=== PATIENT | male | born 1970 | race Caucasian/White ===

== ENCOUNTER 2019-08-11 20:31 | Inpatient (IN) | payer OTHER ==
[~2019-08-11] VITALS: Ht 185.4 cm; Wt 64.9 kg
[2019-08-11 23:05] VITALS: BP 119/94
[2019-08-11] MEDS ORDERED: TEMAZEPAM 7.5 MG CAPSULE PO PRN (23:30)
[2019-08-11] MEDS ORDERED: MAG HYDROX/AL HYDROX/SIMETH 30 ML UDC PO PRN (23:30)
[2019-08-11] MEDS ORDERED: MAGNESIUM HYDROXIDE 30 ML UDC PO PRN (23:30)
[2019-08-11] MEDS ORDERED: ACETAMINOPHEN 325 MG TABLET PO PRN (23:30)
[2019-08-11] MEDS ORDERED: BLOOD SUGAR DIAGNOSTIC 1 EACH STRIP IN ONE (23:30)
[2019-08-12] MEDS ORDERED: OLAN10TA3 PO (00:02)
[2019-08-12] MEDS ORDERED: OLAN5TAB3 PO (00:02)
[2019-08-12] MEDS ORDERED: LORA-259 PO (00:02)
--- NOTE | 2019-08-12 01:13 | NUR ---
GPS CIGAR HEAD PUNCHER NOTES: ADMITTED A 49 Y/O MALE FROM [facility] ON [address] 08/11/2019 AT 0941 FOR GRAVELY DISABLED. PER HOLD PT HAS NOT EATEN IN 2 DAYS, FEARFUL ABOUT [facility], FEARFUL OF POLICE AND ASKING MOM IF THEY ARE GOING TO ARREST HIM. PT ALSO ASKED MOM "AM I ALIVE". THREW ALL OF HIS BEDDINGS OUTSIDE OF HIS ROOM. UNABLE TO STATE WHEN HE LAST TOOK HIS MEDICATION. UNABLE TO MAKE DECISIONS ON HIS SAFETY, UNABLE TO STAY FOCUSED, PACING BACK AND FORTH, AND STATING HE HEARS VOICES IN HIS HEAD. UPON FACE TO FACE EVALUATION, PT PRESENTS ALERT AND ORIENTED X3, DISHEVELED, UNSTEADY GAIT, ANXIOUS, CALM AND COOPERATIVE, ABLE TO FOLLOW COMMAND, BUT TOO TIRED TO SIGN ADMISSION PAPERS. FEELING SLEEPY. BLOOD SUGAR 98, MRSA DONE, SKIN ASSESSMENT DONE, SKIN MOSTLY CLEAR EXCEPT FOR OLD SCRATCHES ON PT CHEST/ABDOMEN. PT BELONGINGS AND CONTRABAND WERE CHECKED AND PLACED IN SAFE. PT RIGHTS DISCUSSED AND PT HANDBOOK PROVIDED. GUIDE TO PRESCRIPTION MEDICATION GIVEN. PT WILL BE UNDER THE CARE OF DR ARMENDARIZ PSYCHIATRIST AND DR DEE INTERNAL MEDICAINE. ORIENTED TO UNIT, STAFF, DOCTORS, CARE PLAN AND UNIT POLICIES. BOTH DOCTORS NOTIFIED OF PT ADMISSION. MEDICATION RECONCILIATION DONE. PT AND DIETARY CONSULT DONE. Q15 MINUTES CHECKS INITIATED, FALL AND SAFETY PRECAUTION INITIATED, CARE PLAN STARTED. CALL LIGHT WITHIN REACH, BED IN LOW LOCKED POSITION. FLUID AND SNACKS GIVEN TOLERATED. WILL MONITOR PT FOR MOOD, SAFETY AND BEHAVIOR. WILL ENDORSE TO ONCOMING DAY SHIFT NURSE.
[2019-08-12 07:49] LABS: BASOPHILS % (AUTO) 0.3 % (0.0-2.0); HEMATOCRIT 51 % (39-51); HEMOGLOBIN 17.2 g/dL (13.5-17.5); LYMPHOCYTES # (AUTO) 1.3 /CMM (0.8-4.8); MEAN CORPUSCULAR HGB CONC 34 g/dl (31.0-36.0); MEAN CORPUSCULAR VOLUME 90 fL (80-96); MONOCYTES # (AUTO) 1.1 /CMM (0.1-1.30); MONOCYTES % (AUTO) 13.2 % (2.0-12.0); NEUTROPHILS # (AUTO) 5.7 /CMM (1.8-8.9); NEUTROPHILS % (AUTO) 69.5 % (43.0-81.0); PLATELET COUNT (AUTO) 314 /CMM (150-450); RED BLOOD CELL COUNT(AUTO) 5.66 MIL/uL (4.5-6.0); WHITE BLOOD COUNT (AUTO) 8.2 K/uL (4.3-11.0)
[2019-08-12 08:00] VITALS: BP 117/75
[2019-08-12 08:13] LABS: CALCIUM, SERUM 10.4 mg/dL (8.5-10.1); CREATININE 1.1 mg/dL (0.6-1.3); POTASSIUM 3.4 mmol/L (3.5-5.1)
[2019-08-12] MEDS: NICOTINE PATCH (21MG) 21 MG PATCH.TD24 TD SCH (08:44)
[2019-08-12] MEDS ORDERED: LORAZEPAM 1 MG TABLET PO PRN (09:00)
[2019-08-12] MEDS ORDERED: POTASSIUM CHLORIDE 20 MEQ TAB.PRT.SR PO SCH ×2 (11:00→13:00)
[2019-08-12 16:00] VITALS: BP 115/83
--- NOTE | 2019-08-12 19:55 | NUR ---
GPS RN NOTES PT POTASSIUM LAB VALUE WAS 3.4 ORDERED TO GIVE K DUR 20 MEQ AT 1100 BUT WAS GIVEN AT 1300 BY AM NURSE.
[2019-08-12] MEDS: LORAZEPAM 0.5 MG TABLET PO PRN (20:03)
--- NOTE | 2019-08-12 20:47 | NUR ---
GPS RN NOTES: RECEIVED PT IN BED AWAKE, ALERT AND ORIENTED X2-3. BLUNT AFFECT, ANXIOUS, SUSPICIOUS, PARANOID, ASKING THIS NURSE "AM I SAFE". PT REASSURED OF HIS SAFETY. REALITY ORIENTATION DONE. DISORGANIZED THOUGHTS, POOR JUDGEMENT, POOR INSIGHT, FORGETFUL, COOPERATIVE. REPORTS BEING ANXIOUS, ATIVAN 0.5MG 1 TAB GIVEN PO FOR ANXIETY ORDERED. DENIES ANY PAIN AT THIS TIME. NO S/S OF ANY DISTRESS. RESPIRATION EVEN AND UNLABORED WITH EQUAL RISE AND FALL OF THE CHEST, ON ROOM AIR WITH SPO2 OF 99%. PT DENIES SI, HI AT THIS TIME. OFFERED FLUID AND SNACK TOLERATED. SAFETY AND FALL PRECAUTION OBSERVED, BED IN LOW LOCKED POSITION, CALL ARCE WITHIN REACH. Q15 MINUTES OBSERVATION CONTINUED. WILL CONTINUE TO MONITOR PT FOR MOOD, SAFETY AND BEHAVIOR.
[2019-08-12] MEDS ORDERED: OLANZAPINE 10 MG TABLET PO SCH (22:00)
[2019-08-13 07:23] LABS: CALCIUM, SERUM 9.2 mg/dL (8.5-10.1); POTASSIUM 3.3 mmol/L (3.5-5.1)
[2019-08-13 08:00] VITALS: BP 129/89
[2019-08-13] MEDS: NICOTINE PATCH (21MG) 21 MG PATCH.TD24 TD SCH (08:07)
--- NOTE | 2019-08-13 08:38 | NUR ---
RN-CO: Paged Dr Martell to made him aware of K 3.3.
--- NOTE | 2019-08-13 08:39 | NUR ---
RN-CO: DR. Martell called back with no new order.
--- NOTE | 2019-08-13 10:25 | NUR ---
RN-CO: DR Martell ordered KCL 40meq noted and carried out.
[2019-08-13] MEDS ORDERED: POTASSIUM CHLORIDE 20 MEQ TAB.PRT.SR PO ONE (10:30)
[2019-08-13 16:17] VITALS: BP 136/64
[2019-08-13 20:08] VITALS: BP 129/89
[2019-08-13] MEDS: OLANZAPINE 5 MG TABLET PO SCH (21:36)
[2019-08-13] MEDS: LORAZEPAM 0.5 MG TABLET PO PRN (22:46)
--- NOTE | 2019-08-13 22:47 | NUR ---
GPS RN NOTES: ANXIOUS PT C/O OF FEELING ANXIOUS. PT STATED, " I FEEL ANXIOUS. CAN I HAVE ATIVAN PLEASE?" CHECKED VITALS WNL. OFFERED ATIVAN 0.5 MG PO PRN ORDERED. PT AGREED AND TOLERATED MEDICATION WELL. CONTINUE TO MONITOR.
[2019-08-14 08:00] VITALS: BP 140/83
[2019-08-14] MEDS: NICOTINE PATCH (21MG) 21 MG PATCH.TD24 TD SCH (09:03)
--- NOTE | 2019-08-14 11:29 | NUR ---
UR Note: ALDEN faxed a clinical to [facility] with attn to Eliezer to the fax number: [phone].
--- NOTE | 2019-08-14 12:21 | NUR ---
Family Contact: SW called the pts mother, Vera ([phone]), and left a voicemail stating that the pt is in the hospital and that the SW would like to discuss the pts discharge plan.
--- NOTE | 2019-08-14 14:00 | NUR ---
Initial Discharge Plan: Pt currently resides with his parents in their home located at [address] [place] [address]; ([phone]). Per pt, he would like to return to his home. SW will work with the pt and the MD regarding appropriate discharge planning. SW will form a safe and proper discharge.
[2019-08-14 16:00] VITALS: BP 123/88
--- NOTE | 2019-08-14 16:29 | NUR ---
Individual Therapy: SW met with the pt at bedside and discussed his discharge plan with him. Pt stated that he would like to return to his home with his parents. 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 SW assured him that if his parents are comfortable he will be returning home.
[2019-08-14 20:09] VITALS: BP 128/82
--- NOTE | 2019-08-14 21:04 | NUR ---
patient c/o generalized body pain ,requested and given Tylenol 650 mg.Medication given is effective.
[2019-08-14] MEDS: LORAZEPAM 0.5 MG TABLET PO PRN (21:57)
[2019-08-14] MEDS: OLANZAPINE 5 MG TABLET PO SCH (21:57)
[2019-08-15 08:00] VITALS: BP 124/86
--- NOTE | 2019-08-15 08:29 | NUR ---
UR Note: ALDEN faxed a clinical to [facility] with attn to Eliezer to the fax number: [phone].
--- NOTE | 2019-08-15 08:36 | NUR ---
FAMILY CONTACT: SW contacted pts mother Vera ([phone]) to confirm pt is able to return back home located at [address] [place], [place] [id number]. Mother stated that pt lives with her and is able to return once stable.
[2019-08-15] MEDS: NICOTINE PATCH (21MG) 21 MG PATCH.TD24 TD SCH (08:38)
--- NOTE | 2019-08-15 09:00 | NUR ---
RN NOTE- PT IN BED, ALERT ORIENTED TO PERSON PLACE, CALM DIRECTABLE ENCOURAGED ADLS GROOMING. PT READING MOSTLY, ANSWERS QUERY DIRECTLY [facility] CONTACT. PARANOID DELUSIONS DENIES SI HI AH VH.
[2019-08-15 16:00] VITALS: BP 136/88
[2019-08-15 20:21] VITALS: BP 138/93
[2019-08-15] MEDS ORDERED: OLANZAPINE 5 MG TABLET PO SCH (22:00)
[2019-08-16 08:00] VITALS: BP 117/79
[2019-08-16] MEDS: NICOTINE PATCH (21MG) 21 MG PATCH.TD24 TD SCH (09:05)
--- NOTE | 2019-08-16 11:46 | NUR ---
Family Contact: Pts mother, Vera ([phone]), called the SW and stated that she needs a psychiatrist referral for the pt once he is discharged from the hospital. SW stated that she will reach out to the insurance company before the pt is discharged and see if they can assist with finding an aftercare provider. Pts mother stated that she wants a provider that can come to the house to meet with the pt and the SW expressed that may not be possible at this moment with JOSE but she will do her best to assist.
--- NOTE | 2019-08-16 15:30 | NUR ---
UR Note: ALDEN faxed a clinical to [facility] with attn to Eliezer to the fax number: [phone].
[2019-08-16] MEDS: LORAZEPAM 0.5 MG TABLET PO PRN (15:47)
[2019-08-16 16:00] VITALS: BP 125/91
--- NOTE | 2019-08-16 16:24 | NUR ---
Individual Therapy: SW met with the pt at bedside and discussed his discharge plan with him. SW stated that he will be going home by next week and that the SW is working on receiving after care appointments with the pts insurance company.
--- NOTE | 2019-08-16 19:30 | NUR ---
GPS RN NOTE, RECEIVED PATIENT AWAKE AND IN BED, PATIENT HAS NO COMPLAINTS OF PAIN. PATIENT IS DISPLAYING NO S/S OF APPARENT DISTRESS AT THIS TIME. PATIENT BREATHING IS UNLABORED WITH EQUAL RISE AND FALL OF THE CHEST. PATIENT IS ALERT AND ORIENTED X 3 ON ROOM AIR WITH A SPO2 98%. PATIENT IS COMPLIANT WITH MEDICATION, CALM, ANXIOUS AT TIMES, PARANOID, ISOLATIVE, AND COOPERATIVE. PATIENT DENIES SUICIDE IDEATIONS AND HOMICIDAL IDEATIONS AT THIS TIME. PATIENT ASSISTED WITH TURNING AND REPOSITIONING Q2HR AND PRN FOR COMFORT AND CIRCULATION. PATIENT HAS NO NEEDS AT THIS TIME. PATIENT EDUCATED ON THE USE OF THE CALL ARCE. PATIENT BED SIDE RAILS UP X 2 FOR SAFETY, BED IS LOCKED, AND LOW. WILL CONTINUE TO MONITOR Q15MIN WITH THE HELP OF STAFF TO MAINTAIN SAFETY.
[2019-08-16 20:03] VITALS: BP 98/60
[2019-08-16] MEDS: OLANZAPINE 10 MG TABLET PO SCH (20:12)
[2019-08-17 08:00] VITALS: BP 133/95
[2019-08-17] MEDS: NICOTINE PATCH (21MG) 21 MG PATCH.TD24 TD SCH (08:10)
--- NOTE | 2019-08-17 09:57 | NUR ---
UR Note: ALDEN faxed a clinical to [facility] with attn to Eliezer to the fax number: [phone].
--- NOTE | 2019-08-17 10:02 | NUR ---
UR NOTE: ALDEN contacted Eliezer, continuous pillowcase cutter at [facility] [phone] ex:[phone] and left a voicemail requesting referrals for partial programs in [facility].
--- NOTE | 2019-08-17 10:08 | NUR ---
FAMILY CONTACT: SW contacted pts mother Vera ([phone]) to inform her pt will be discharged on Wednesday08/21/19. Mother states that pt is able to come home whenever he wants. SW stated that she contacted pts insurance to request a referral for a partial program. Mother also expressed that she needs a psychiatrist and has called all the MD's on the insurance list and no one is able to see pt at this time. Mother states pt will need transportation arranged at she is unable to leave the house and is bedbound. SW stated that she will attempt to coordinate transportation for pt.
[2019-08-17] MEDS: LORAZEPAM 0.5 MG TABLET PO PRN ×2 (11:35→18:18)
--- NOTE | 2019-08-17 11:35 | NUR ---
Pt. is anxious and asking for Ativan po and given. Will continue to monitor.
--- NOTE | 2019-08-17 11:54 | NUR ---
INDIVIDUAL MEETING: SW met with pt at bedside and discussed pts discharge plan. Pt was concerned due to MD stating that he will be discharged to a SNF. SW assured pt that he will be discharged back home on Wednesday08/21/19. SW stated that transportation needed to be arranged and that it may be an issue since pt lives in [facility] and hospital is unable to arrange transportation for him. Pt stated that he would pay for a taxi and stated he has money to do so.
[2019-08-17 16:00] VITALS: BP 128/88
--- NOTE | 2019-08-17 18:19 | NUR ---
Pt. is anxious and asking for ativan prn and given.
--- NOTE | 2019-08-17 19:30 | NUR ---
GPS RN NOTE, RECEIVED PATIENT AWAKE AND IN BED, PATIENT HAS NO COMPLAINTS OF PAIN. PATIENT IS DISPLAYING NO S/S OF APPARENT DISTRESS AT THIS TIME. PATIENT BREATHING IS UNLABORED WITH EQUAL RISE AND FALL OF THE CHEST. PATIENT IS ALERT AND ORIENTED X 3 ON ROOM AIR WITH A SPO2 97%. PATIENT IS COMPLIANT WITH MEDICATION, CALM, ANXIOUS AT TIMES, PARANOID, ISOLATIVE, AND COOPERATIVE. PATIENT DENIES SUICIDE IDEATIONS AND HOMICIDAL IDEATIONS AT THIS TIME. PATIENT ASSISTED WITH TURNING AND REPOSITIONING Q2HR AND PRN FOR COMFORT AND CIRCULATION. PATIENT HAS NO NEEDS AT THIS TIME. PATIENT EDUCATED ON THE USE OF THE CALL ARCE. PATIENT BED SIDE RAILS UP X 2 FOR SAFETY, BED IS LOCKED, AND LOW. WILL CONTINUE TO MONITOR Q15MIN WITH THE HELP OF STAFF TO MAINTAIN SAFETY.
[2019-08-17 20:00] VITALS: BP 131/96
[2019-08-17] MEDS: OLANZAPINE 10 MG TABLET PO SCH (20:15)
[2019-08-18 08:00] VITALS: BP 120/79
[2019-08-18] MEDS: NICOTINE PATCH (21MG) 21 MG PATCH.TD24 TD SCH (09:09)
[2019-08-18] MEDS: LORAZEPAM 0.5 MG TABLET PO PRN ×2 (09:10→17:48)
--- NOTE | 2019-08-18 09:10 | NUR ---
rn notes ADMINISTERED ATIVAN 0.5 MG PO PRN FOR ANXIETY PER PATIENT REQUEST, V/S TAKEN BP-120/79, P-72, CONTINUED MONITORING.
--- NOTE | 2019-08-18 09:37 | NUR ---
UR Note: ALDEN contacted Eliezer, patient case coordinator at [facility] ([phone] ext [phone]) and left a voicemail requesting aftercare appointments for the pt. ALDEN stated that the pt will be discharged on Wednesday back to his home in the [facility].
--- NOTE | 2019-08-18 11:55 | NUR ---
Individual Therapy: ALDEN met with the pt in the activities room and discussed his discharge plan with him. SW informed him that he will be discharged home on Wednesday. Pt appeared to be anxious about his discharge to a facility and he stated that he did not want that. SW assured him that he will be going home with aftercare appointments in the [facility].
--- NOTE | 2019-08-18 12:25 | NUR ---
UR Note: ALDEN faxed a clinical to [facility] with attn to Eliezer to the fax number: [phone].
[2019-08-18 16:00] VITALS: BP 112/79
--- NOTE | 2019-08-18 17:48 | NUR ---
RN NOTES ADMINISTERED ATIVAN 0.5 MG PO PRN FOR ANXIETY PER PATIENT REQUEST, V/S TAKEN BP 112/79, P-98, CONTINUED MONITORING.
[2019-08-18 20:00] VITALS: BP 123/90
[2019-08-18] MEDS: OLANZAPINE 10 MG TABLET PO SCH (20:50)
[2019-08-19 07:01] LABS: BASOPHILS % (AUTO) 0.5 % (0.0-2.0); EOSINOPHILS % (AUTO) 3.5 % (0.0-6.0); HEMATOCRIT 43 % (39-51); HEMOGLOBIN 14.3 g/dL (13.5-17.5); LYMPHOCYTES # (AUTO) 1.7 /CMM (0.8-4.8); MEAN CORPUSCULAR HGB CONC 34 g/dl (31.0-36.0); MEAN CORPUSCULAR VOLUME 91 fL (80-96); MONOCYTES # (AUTO) 0.7 /CMM (0.1-1.30); MONOCYTES % (AUTO) 11.6 % (2.0-12.0); NEUTROPHILS # (AUTO) 3.5 /CMM (1.8-8.9); NEUTROPHILS % (AUTO) 56.4 % (43.0-81.0); PLATELET COUNT (AUTO) 354 /CMM (150-450); RED BLOOD CELL COUNT(AUTO) 4.71 MIL/uL (4.5-6.0); WHITE BLOOD COUNT (AUTO) 6.2 K/uL (4.3-11.0)
[2019-08-19 07:15] LABS: ALBUMIN 3.5 g/dL (3.4-5.0); BILIRUBIN,TOTAL 0.2 mg/dL (0.2-1.0); CALCIUM, SERUM 8.7 mg/dL (8.5-10.1); CREATININE 1.1 mg/dL (0.6-1.3); MAGNESIUM 2.2 mg/dL (1.8-2.4); PHOSPHORUS 4.1 mg/dL (2.5-4.9); POTASSIUM 4.1 mmol/L (3.5-5.1); TOTAL PROTEIN, SERUM 6.4 g/dL (6.4-8.2)
[2019-08-19 08:00] VITALS: BP 121/73
[2019-08-19] MEDS: NICOTINE PATCH (21MG) 21 MG PATCH.TD24 TD SCH (08:27)
[2019-08-19] MEDS: LORAZEPAM 0.5 MG TABLET PO PRN ×2 (08:47→15:07)
--- NOTE | 2019-08-19 08:48 | NUR ---
Pt. is anxious and asking for an Ativan po prn and given.
--- NOTE | 2019-08-19 15:07 | NUR ---
Pt. is asking an ativan po for anxiety.
[2019-08-19 16:00] VITALS: BP 111/85
[2019-08-19] MEDS: OLANZAPINE 10 MG TABLET PO SCH (19:54)
[2019-08-19 19:59] VITALS: BP 125/65
[2019-08-19 20:09] VITALS: BP 127/79
[2019-08-20 08:00] VITALS: BP 123/93
[2019-08-20] MEDS: NICOTINE PATCH (21MG) 21 MG PATCH.TD24 TD SCH (08:29)
[2019-08-20] MEDS: LORAZEPAM 0.5 MG TABLET PO PRN ×2 (09:17→16:34)
--- NOTE | 2019-08-20 09:18 | NUR ---
RN-CO: ATIVAN 0.5 MG PO FOR RESTLESSNESS.
[2019-08-20 16:00] VITALS: BP 111/76
--- NOTE | 2019-08-20 16:35 | NUR ---
RN-CO:ATIVAN 0.5 MG PO FOR ANXIETY/RESTLESSNESS.
[2019-08-20 20:00] VITALS: BP 127/87
[2019-08-20] MEDS: OLANZAPINE 10 MG TABLET PO SCH (20:22)
[2019-08-21 08:00] VITALS: BP 112/76
[2019-08-21] MEDS: NICOTINE PATCH (21MG) 21 MG PATCH.TD24 TD SCH (08:16)
--- NOTE | 2019-08-21 08:25 | NUR ---
UR NOTE: ALDEN contacted Eliezer, supervisor case loading at [facility] [phone] ex:[phone] and left a voicemail requesting referrals for partial programs in [facility] and aftercare appointments.
[2019-08-21] MEDS: LORAZEPAM 0.5 MG TABLET PO PRN (08:38)
--- NOTE | 2019-08-21 09:18 | NUR ---
DISCHARGE NOTE: Pt will be discharged at 3:00pm via ([employer]-self pay) home [address] [place] [address]. Pts mother, Vera [phone] has been notified and agrees with discharge plan. Pts mood is euthymic with congruent affect. Pt denied visual/auditory hallucinations and denied suicidal/homicidal ideation. Pt will follow up with Psychiatrist: Dr. Kermit Rico Address: [address] [place] [address] telephonically SW faxed clinicals to . Pt will also follow up with [facility]: Dr. Marvin Gandhi Address: [address] [place] [address] . ALDEN provided pt with a referral to [facility] : [facility] Address: [address] [place] [address] and [facility] Address: [address] [place] [address] . Pt states he does not need referrals as he does not have an issue with drugs or alcohol. Pt took the referral anyhow. The multidisciplinary exit care form was done, printed, signed, and given to the patient.
--- NOTE | 2019-08-21 09:27 | NUR ---
RN-CO: Dr Ramos ordered to discontinue hold and discharge patient at 3pm today at home via private care. Patient has an appropriate affect, attending groups, denies SI/HI. Patient also denies auditory and visual hallucinations. No acute distress noted. Medically cleared for discharge by Dr Graham Rodgers. Addendum: 08/21/19 at 1405 by DEBBIE KRISHNAMURTHY RN RN-CO: Correction: Patient will take a taxi going home.
--- NOTE | 2019-08-21 14:03 | NUR ---
RN-CO: PATIENT SIGNED ALL DISCHARGE PAPERS AFTER I EXPLAINED IT TO HIM AND HE VERBALIZED UNDERSTANDING. DR YUMIKO MOORE MEDICALLY CLEARED HIM FOR DISCHARGE. ALL VALUABLES WILL BE GIVEN BACK TO HIM. HE WILL TAKE A TAXI ( SELF PAY) GOING HOME.
--- NOTE | 2019-08-21 14:15 | NUR ---
RN-CO: Patient was escorted by an RN TO THE HOSPITAL LOBBY AWAITING FOR HIS TAXI. ALL DISCHARGE PAPERS AND RX WAS GIVEN TO HIM. VALUABLES WAS ALSO GIVEN.
--- NOTE | 2019-08-23 12:23 | NUR ---
UR Note: ALDEN faxed a discharge clinical to [facility] with attn to Eliezer to the fax number: [phone].
--- NOTE | 2019-08-23 12:23 | NUR ---
UR NOTE: Eliezer, correctional case records supervisor at [facility] [phone] ex:[phone] contacted the and stated that he would like the pts discharge clinical to be faxed over.
--- NOTE | 2019-09-07 10:56 | NUR ---
UR Note: ALDEN faxed a discharge clinical to [facility] with attn to Eliezer to the fax number: [phone].
== END 2019-08-21 14:16 | disposition home or self-care (01) | DRG 885 ==
LOC: GPS 22:21
PROVIDERS: ADMIT Psychiatry & Neurology Psychosomatic Medicine; ATTEND Nurse Practitioner Acute Care
DX: F25.0 Schizoaffective disorder, bipolar type (principal); E87.1 Hypo-osmolality and hyponatremia; E46 Unspecified protein-calorie malnutrition; Z68.1 Body mass index [BMI] 19.9 or less, adult; F41.9 Anxiety disorder, unspecified; E86.9 Volume depletion, unspecified; E87.6 Hypokalemia; E66.01 Morbid (severe) obesity due to excess calories; E83.52 Hypercalcemia; F10.10 Alcohol abuse, uncomplicated; F12.10 Cannabis abuse, uncomplicated; G31.84 Mild cognitive impairment of uncertain or unknown etiology; Z73.6 Limitation of activities due to disability; Z91.81 History of falling; F32.9 Major depressive disorder, single episode, unspecified; F29 Unspecified psychosis not due to a substance or known physiological condition; E78.5 Hyperlipidemia, unspecified; R53.1 Weakness; R27.8 Other lack of coordination; F17.200 Nicotine dependence, unspecified, uncomplicated
CPT/HCPCS: 36415; 80048-TC; 80053-TC; 80061-TC; 82962-TC; 83735-TC; 84100-TC; 85025-TC; 87081-TC; 97116-TC; 97530-TC